=== PATIENT | male | born 1965 | race Caucasian/White ===

== ENCOUNTER 2017-09-22 11:58 | Emergency (ER) | payer OTHER | END 2017-09-22 15:00 | disposition home or self-care (01) | LOC: FTE 11:58 | DX: S01.91XA Laceration without foreign body of unspecified part of head, initial encounter (principal); S40.022A Contusion of left upper arm, initial encounter; M25.561 Pain in right knee; F84.0 Autistic disorder; E03.9 Hypothyroidism, unspecified; W19.XXXA Unspecified fall, initial encounter; Y92.9 Unspecified place or not applicable | CPT/HCPCS: 70450; 73562-50; 99284-25 ==

== ENCOUNTER 2018-08-24 13:41 | Emergency (ER) | payer SELFPAY, OTHER | END 2018-08-24 18:30 | disposition left against medical advice (07) | LOC: E/R 13:41 | DX: Z53.21 Procedure and treatment not carried out due to patient leaving prior to being seen by health care provider (principal) ==